=== PATIENT | male | born 1995 | race Asian ===

== ENCOUNTER 2016-11-17 18:14 | Emergency (ER) | payer OTHER ==
[2016-11-17 18:20] VITALS: RESP 16; TEMP 98.1
--- NOTE | 2016-11-17 19:12 | EDPHY ---
General - History Smoking Status: Light smoker Narrative: CHIEF COMPLAINT: Hematuria HISTORY OF PRESENT ILLNESS: patient presents from urgent care due to them finding blood in his urine on microscopy. He denies visualize any gross hematuria recently. He does report that he has had some influenza type symptoms including mild headache, chills, fever and mild cough. No neck pain or stiffness. No abdominal pain. No nausea or vomiting. No flank pain. No gross hematuria recently or ever. No painful urination. Went to urgent care today where they evaluated him with a reportedly negative flu swab. On the urinalysis today showed blood in the urine dip. The son is here for evaluation. No other associated complaints or modifying factors. REVIEW OF SYSTEMS: Ten systems reviewed and are negative unless otherwise noted in the HPI EXAMINATION General Appearance: Alert, no distress Head: normocephalic, atraumatic Eyes: Pupils equal and round, no conjunctival pallor or injection ENT, Mouth: Mucous membranes moist . No erythema or edema. Uvula is midline. Neck: Normal inspection, supple, non-tender . No nuchal rigidity. No meningismus. Respiratory: Lungs are clear to auscultation . No wheezing, rhonchi or crackles. Cardiovascular: Regular rate and rhythm. no murmur. Pulses intact distally and symmetrically. Gastrointestinal: Abdomen is soft and nontender . No CVA tenderness. No fullness. No palpable masses. Back: non-tender, no bony abnormalities Neurological: A&O, nonfocal, normal gait . Strength is symmetric in all limbs. Skin: Warm and dry, no rash Extremities: Nontender, no pedal edema Psychiatric: Mood and affect normal DIFFERENTIAL DIAGNOSES: Including but not limited to Hematuria, dehydration, viral illness, renal cysts, renal mass, renal stone MDM: 7:50 p.m. there is microscopic hematuria and proteinuria on the urinalysis. I have ordered laboratory studies to evaluate for rhabdomyolysis as well as an ultrasound of the kidneys for possibility of mass versus renal stones. He is in no acute distress. 10:40 p.m. I have been notified by the radiologist that the ultrasounds are negative regarding the kidneys and retroperitoneum. Laboratory studies are unremarkable with very mildly elevated CK less than 300. There is hematuria and proteinuria. No other findings. I will discharge him home with instructions to follow up with primary care physician for further studies on this. He is to return to the ER for gross hematuria, flank pain, fever or abdominal pain. He is comfortable with this plan and discharged home stable condition. SUPERVISION: This patient was independently evaluated without the aide of supervising physician. (Fortino Richard) Discussion: The patient wasevaluatedand managed by themidlevel provider. My co-signature indicates that Odette reviewed this chart and I agree with the findings and plan of care asdocumented. I am the secondary supervisingphysician. (Rona Pike) - Objective Vital Signs: Initial Vital Signs Temperature (C) 36.7 C 11/17/16 18:15 Heart Rate 86 11/17/16 18:15 Respiratory Rate 16 11/17/16 18:15 Blood Pressure 124/74 H 11/17/16 18:15 O2 Sat (%) 92 11/17/16 18:15 O2 Delivery Mode Room Air Allergies/Adverse Reactions: No Known Allergies Allergy (Unverified 11/17/16 18:20) Home Medications: Medication Instructions Recorded NK [No Known Home Meds] 11/17/16 Laboratory Results: Laboratory Results 11/17/16 20:15 11/17/16 20:15 Medications Given: Discontinued Medications Sodium Chloride (Ns) 1,000 mls @ 0 mls/hr IV ONCE ONE PRN Reason: Wide Open Stop: 11/17/16 19:48 Last Admin: 11/17/16 20:10 Dose: 1,000 mls Departure - Departure Disposition: Home, Routine, Self-Care Clinical Impression: Hematuria, Viral illness Condition: Good Instructions: Hematuria (ED), Viral Syndrome (ED) Additional Instructions: Follow-up with your primary care physician. Return to ER for worsening symptoms , obvious blood in the urine, flank pain, or any abdominal pain. Referrals: NONE *PRIMARY CARE P,. [Primary Care Provider] - As per Instructions Dustin Dow MD [Medical Doctor] - As per Instructions Stand Alone Forms: School Excuse
[2016-11-17 19:44] LABS: COLOR AMBER; LEUKOCYTE ESTERASE,URINE NEGATIVE (NEGATIVE); NITRITE,URINE NEGATIVE (NEGATIVE)
[2016-11-17 19:45] LABS: MUCUS TRACE /lpf (NONE-1+)
[2016-11-17] MEDS ORDERED: NS 1,000 ML IV ONE (19:47)
[2016-11-17 20:28] LABS: % IMMATURE GRANULYOCYTES 0.3 % (0.0-1.1); ABSOLUTE IMMATURE GRANULOCYTES 0.02 10^3/uL (0.00-0.10); ADD DIFF? NO; ADD MORPH? NO; ADD SCAN? YES; FRAGMENT RBC FLAG 0 (0-99); HEMATOCRIT 46.3 % (40.0-51.0); HEMOGLOBIN 16.4 g/dL (13.7-17.5); LEFT SHIFT FLG 0 (0-99); LIPEMIA HEMOLYSIS FLAG 90 (0-99); MEAN CELL HEMOGLOBIN 29.5 pg (27.9-34.1); MEAN CELL HEMOGLOBIN CONCENTR. 35.4 g/dL (32.4-36.7); MEAN CELL VOLUME 83.4 fL (81.5-99.8); MEAN PLATELET VOLUME 10.8 fL (8.7-11.7); PLATELET CLUMPS FLAG 0 (0-99); PLATELET COUNT 122 10^3/uL (150-400); RED BLOOD CELL COUNT 5.55 10^6/uL (4.40-6.38); RED CELL DISTRIBUTION WIDTH 12.2 % (11.5-15.2)
[2016-11-17 20:33] LABS: INR 0.94 (0.83-1.16); PROTIME(PATIENT) 12.5 SEC (12.0-15.0)
[2016-11-17 20:34] LABS: APTT 29.1 SEC (23.0-38.0); ATYPICAL LYMPHOCYTE FLAG 140 (0-99)
[2016-11-17 20:40] LABS: ANION GAP 12 mEq/L (8-16); CALCIUM 8.7 mg/dL (8.5-10.4); CARBON DIOXIDE 25 mEq/l (22-31); CHLORIDE 95 mEq/L (97-110); GLOMERULAR FILTRATION RATE > 60; GLUCOSE 101 mg/dL (70-100); POTASSIUM 3.8 mEq/L (3.5-5.2); SODIUM 132 mEq/L (134-144)
[2016-11-17 20:56] LABS: CK-MB INTERPRETATION NEGATIVE (NEGATIVE); CREATINE KINASE-MB FRACTION 0.47 ng/mL (0-3.19)
[2016-11-17 21:26] LABS: SCAN POSITIVE
[2016-11-17 21:30] LABS: PLATELET ESTIMATE DECREASED (ADEQ)
[2016-11-17 22:59] VITALS: BP 119/82; PULSE 79; O2SAT 97
[2016-11-18 12:19] LABS: CHLAMYDIA AMPLIFICATION GENPRB NEGATIVE (NEGATIVE)
== END 2016-11-17 22:55 | disposition home or self-care (01) ==
DX: R31.9 Hematuria, unspecified (principal); B34.9 Viral infection, unspecified